=== PATIENT | male | born 1995 | race Caucasian/White ===

== ENCOUNTER 2019-02-03 00:13 | Emergency (ER) | payer OTHER ==
[~2019-02-03] VITALS: Ht 195.6 cm; Wt 106.8 kg
[2019-02-03] MEDS ORDERED: KETOROLAC 60 MG/2 ML VIAL (J1885) IM ONE (02:00)
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
[2019-02-03 02:40] VITALS: BP 151/75
== END 2019-02-03 02:42 | disposition home or self-care (01) ==
LOC: M ED 00:13
DX: S16.1XXA Strain of muscle, fascia and tendon at neck level, initial encounter (principal); V49.59XA Passenger injured in collision with other motor vehicles in traffic accident, initial encounter; Y92.410 Unspecified street and highway as the place of occurrence of the external cause
CPT/HCPCS: 70450; 72125; 96372; 99284; J1885